=== PATIENT | male | born 1985 | race Caucasian/White ===

== ENCOUNTER 2020-07-15 15:50 | Emergency (ER) | payer OTHER, SELFPAY ==
[2020-07-15] VITALS (32 sets, daily range): BP systolic 130–152; BP diastolic 86–108; PULSE 92–106; RESP 7–26; O2SAT 96–100
--- NOTE | ~2020-07-15 | CT_ITS ---
EXAMINATION: CT BRAIN W/O DATE: 07/15/2020 17:15 INDICATION: Altered mental status. TECHNIQUE: Computed tomography (CT) of the head was performed without intravenous contrast. The dose- length product was 681.00 mGy-cm. The mA was adjusted according to patient size. Iterative reconstruc tion technique was employed. COMPARISON: No prior studies for comparison. FINDINGS: Normal brain parenchymal volume for age. Normal hutson-white differentiation. No acute intrac ranial hemorrhage, infarction, mass or mass effect. No ventriculomegaly or midline shift. Midline sagittal images demonstrate a normal corpus callosum, c raniovertebral junction and sella turcica. Basilar cisterns are patent. Paranasal sinuses and mastoids are pneumatized. No depressed skull fractures. IMPRESSION: 1. No acute intracranial abnormality. Reviewed, dictated and finalized at location A. ON GRAPH[employer] ARTIST
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
[2020-07-15 17:47] LABS: Basophils Absolute Auto 0.1 K/mm3 (0.0-0.1); Basophils Percent Auto 0.6 % (0.2-1.2); Eosinophils Absolute Auto 0.2 K/mm3 (0-0.3); Eosinophils Percent Auto 2.2 % (0-4.4); Hematocrit 45.8 % (42.0-52.0); Hemoglobin 15.7 g/dL (14.0-18.0); Immature Granulocyte Absolute 0.01 K/mm3 (0.00-0.031); Immature Granulocyte Percent A 0.1 % (0-0.5); Lymphocytes Absolute Auto 2.99 K/mm3 (0.9-3.2); Lymphocytes Percent Auto 33.4 % (18.3-44.2); Mean Corpuscular HGB Conc 34.3 g/dl (32-36); Mean Corpuscular Hemoglobin 30.1 pg (26-34); Mean Corpuscular Volume 87.7 fl (80-100); Monocytes Absolute Auto 0.7 K/mm3 (0.1-0.6); Monocytes Percent Auto 7.6 % (2.6-8.5); Neutrophils Percent Auto 56.1 % (45.5-73.1); Platelet Count Result 207 k/mm3 (150-375); Red Blood Count 5.22 M/mm3 (4.6-6.20); Red Cell Distribution Width 12.6 % (11.5-14.5); White Blood Count 8.9 K/mm3 (4.5-10.0)
[2020-07-15 18:04] LABS: Anion Gap 4 mmol/L (8-16); Blood Urea Nitrogen 11 mg/dL (9-20); Calcium 8.9 mg/dL (8.4-10.2); Carbon Dioxide 30 mmol/L (22-30); Chloride 105 mmol/L (98-107); Estimated Glomerular Filt Rate > 60; Glucose 105 mg/dL (75-110); Potassium 3.7 mmol/L (3.4-5.0); Sodium 139 mmol/L (137-145)
[2020-07-15 18:54] LABS: Acetaminophen < 10 ug/mL (10-30); Ethanol < 10 mg/dL (<10)
[2020-07-15 19:12] LABS: Barbiturate Screen Urine Negative (Negative); Benzodiazepines Screen Urine Positive (Negative)
[2020-07-15 19:23] LABS: Cannabinoid Screen Urine Positive (Negative); Cocaine Screen Urine Negative (Negative); Methadone Screen Urine Negative (Negative); Opiate Screen Urine Negative (Negative); Phencyclidine Screen Urine Negative (Negative)
[2020-07-15 20:22] LABS: Amphetamine Screen Urine Positive (Negative)
[2020-07-16 01:16] VITALS: BP 122/79; PULSE 92; RESP 16; O2SAT 97
[2020-07-16] MEDS: LACTATED RINGERS 1,000 ML 999 ML IV CONT (01:38)
[2020-07-16 02:41] VITALS: BP 124/80; PULSE 86; RESP 14; O2SAT 98
[2020-07-16 04:15] VITALS: BP 139/101; PULSE 91; RESP 14; O2SAT 97
[2020-07-16 05:32] VITALS: BP 120/74; PULSE 85; RESP 18; O2SAT 98
== END 2020-07-16 05:49 | disposition home or self-care (01) ==
PROVIDERS: Emergency Provider Emergency Medicine
DX: T50.91 Poisoning by, adverse effect of and underdosing of multiple unspecified drugs, medicaments and biological substances (principal)
CPT/HCPCS: 36415; 70450; 80048; 80307; 85025; 96360; 99284; J7120

== ENCOUNTER 2020-10-10 17:48 | Inpatient (IN) | payer OTHER, SELFPAY ==
--- NOTE | ~2020-10-10 | XR_ITS ---
EXAMINATION: XR chest 1V portable DATE: 10/10/2020 18:35 INDICATION: Transient alteration of awareness. Emesis. TECHNIQUE: frontal view of the chest was obtained. COMPARISON: None FINDINGS: The lungs are clear with no focal airspace opacities, pulmonary edema, pleural effusion or pneumothor ax. The cardiomediastinal silhouette is normal. There are a couple small embolization coils in the le ft upper quadrant. Visualized bones and soft tissues are unremarkable. IMPRESSION: 1. No acute cardiopulmonary disease. Reviewed, dictated and finalized at location A.
--- NOTE | ~2020-10-10 | CT_ITS ---
EXAMINATION: CT brain wo con DATE: 10/10/2020 18:31 INDICATION: Altered mental status TECHNIQUE: Computed tomography (CT) of the head was performed without intravenous contrast. Sagittal and coronal reconstructions were performed. The mA was adjusted according to patient size. Iterative reconstruction technique was employed. The dose-length product was 681.00 mGy-cm. COMPARISON: head CT dated 07/15/2020 FINDINGS: No acute intracranial hemorrhage, acute infarction or abnormal extra axial fluid collection. Ventricl es are normal and symmetric. No mass/mass effect. The orbits, paranasal sinuses and mastoid air cells are normal. IMPRESSION: 1. Normal head CT. Reviewed, dictated and finalized at location A. IMPRESSION: 1. Normal head CT.
[2020-10-10 17:49] VITALS: BP 147/98; PULSE 109; RESP 17; TEMP 37.1; O2SAT 100
--- NOTE | 2020-10-10 17:52 | ECG_ITS ---
Measurements Intervals [place] Rate: 103 P: 73 OK: 155 QRS: 37 QRSD: 101 T: 64 QT: 338 QTc: 443 Interpretive Statements SINUS TACHYCARDIA ABNORMAL ECG Electronically Signed On 10-10-2020 20:15:11 CDT by Adam Parra D.O.
[2020-10-10 17:54] LABS: Glucose Point of Care 105 (65-105)
[2020-10-10 17:59] LABS: Alveolar/Arterial O2 Gradient 201.9 mmHg; Base Excess ABG 1.5 mEq/l (+/-2.0); Carboxyhemoglobin 1.7 % THb (0-2.0); Fractional Inspired Oxygen 100 %; HCO3 ABG 27.1 mEq/l (22.0-26.0); Methemoglobin ABG 0.3 %THb (0-1.5); Oxygen Content ABG 20.8 %vol (16.0-22.0); Oxygen Saturation ABG 99.9 % (95.0-100.0); Oxyhemoglobin 97.3 % THb (90.0-100.0); PCO2 ABG 46.4 mmHg (35.0-45.0); PO2 ABG 464.7 mmHg (80.0-100.0); PO2 FiO2 Ratio Arterial Blood 4.65 %; Reduced Hemoglobin 0.7 %THb (0-5.0); Total Hemoglobin 14.3 g/dL (12.0-18.0); pH ABG 7.384 (7.350-7.450)
--- NOTE | 2020-10-10 17:59 | ED.SEIZURE ---
HPI - Seizure General Chief Complaint: Seizure Stated Complaint: SZ Time Seen by Provider: 10/10/20 17:52 Source: EMS Mode of arrival: EMS Limitations: altered mental status History of Present Illness HPI Narrative: This is a 35 year old male who presents from [facility] for an evaluation of seizures. EMS states they were told patient was found with emesis on the floor and altered. On EMS arrival, patient was alert and able to answer questions. They state in route patient started clinching both hands and stiffened up so he was given 5 mg valium. THey are unsure of prior history of medical problems. Patient is altered now. Related Data Allergies Allergy/AdvReac Type Severity Reaction Status Date / Time No Known Allergies Allergy Verified 07/15/20 18:52 Review of Systems Review of Systems: ROS unobtainable: Yes unobtainable due to mental status [facility] Social History Social History Gender identity (if verbalized by the patient): Male Comments Unknown medical, surgical or family history. Unknown social history Exam Const: Other: patient in position and clinching, flexing bilateral arms and hands. No shaking, eyes rolling to back of head, patient not shaking HENMT: Head: normocephalic and atraumatic Mouth: Yes Normal oral and palatal mucosa present, Yes lip normal, Yes oropharynx normal and Yes moist mucous membranes Eyes: Pupils: Equal, round and reactive pupils present Resp: Effort & Inspection: not labored, no retractions and tachypneic Auscultation: clear to auscultation bilaterally Cardio: Rate: tachycardic Rhythm: regular rhythm Heart sounds: no murmurs GI: Auscultation: normal bowel sounds Skin: General skin exam: normal color Rashes: no rashes Neuro: General: moves all extremities Extrem: General: no pedal edema Course Reevaluation(s) Reevaluation #1: Patient will move with sternal rub. It is unclear if patient had seizure. He has history of polysubstance abuse. He will be admitted to ICU for observation. I have discussed with Pricilla Serrano who accepts patient to hospitalist service to ICU. He was given 4 mg IV ativan on arrival to ER. Date: 10/10/20 Time: 19:11 Consultations Consultation #1: I discussed case with Dr. Rios. He accepts patient to ICU. He request patient to be loaded with keppra 1 g and to be given keppra 500 bid. I have also consulted Dr. Whalen. Date: 10/10/20 Time: 19:14 Vital Signs Vital signs: Vital Signs Temperature 98.7 F 10/10/20 17:49 Pulse Rate 109 H 10/10/20 17:49 Respiratory Rate 17 10/10/20 17:49 Blood Pressure 147/98 H 10/10/20 17:49 Pulse Oximetry 100 10/10/20 17:49 Temperature 98.7 F 10/10/20 17:49 Pulse Rate 102 H 10/10/20 18:11 Respiratory Rate 17 10/10/20 17:49 Blood Pressure 147/98 H 10/10/20 17:49 Pulse Oximetry 100 10/10/20 17:49 MDM - Seizure Medical Records Attestation: I reviewed the patient's medical records. Lab Data Attestation: I reviewed the patient's lab results. Result diagrams: 10/10/20 18:10 10/10/20 18:09 Labs: Lab Results 10/10/20 10/10/20 10/10/20 Range/Units 17:51 17:56 18:09 WBC (4.5-10.0) K/mm3 RBC (4.6-6.20) M/mm3 Hgb (14.0-18.0) g/dL Hct (42.0-52.0) % MCV (80-100) fl MCH (26-34) pg MCHC (32-36) g/dl RDW (11.5-14.5) % Plt Count (150-375) k/mm3 MPV (7.4-10.4) fl Immature Gran % (Auto) (0-0.5) % Neut % (Auto) (45.5-73.1) % Lymph % (Auto) (18.3-44.2) % [place] % (Auto) (2.6-8.5) % Eos % (Auto) (0-4.4) % Baso % (Auto) (0.2-1.2) % Lymph # (Auto) (0.9-3.2) K/mm3 [place] # (Auto) (0.1-0.6) K/mm3 Eos # (Auto) (0-0.3) K/mm3 Baso # (Auto) (0.0-0.1) K/mm3 Abs Immat Gran (auto) (0.00-0.031) K/mm3 Absolute Neuts (auto) (1.3-6.7) K/mm3 Absolute Nucleated RBC (0.0-0.012) K/mm3 Nucle
[2020-10-10 18:01] LABS: Device NON-REBREATHER MASK; Modified Allen's Test Pass; Site Drawn RIGHT BRACHIAL
[2020-10-10 18:11] VITALS: PULSE 102
[2020-10-10] MEDS: LACTATED RINGERS 1,000 ML 999 ML IV CONT (18:16)
[2020-10-10] MEDS: LORazepam INJ (*CRX) 2 MG/ML VIAL (18:20)
--- NOTE | 2020-10-10 18:20 | PC.NURSE ---
Patient given ativan 2mg per EDP verbal order at 1747 and 1751
[2020-10-10 18:27] LABS: Basophils Absolute Auto 0.1 K/mm3 (0.0-0.1); Basophils Percent Auto 0.6 % (0.2-1.2); Eosinophils Absolute Auto 0.1 K/mm3 (0-0.3); Eosinophils Percent Auto 1.4 % (0-4.4); Hematocrit 39.3 % (42.0-52.0); Hemoglobin 13.3 g/dL (14.0-18.0); Immature Granulocyte Absolute 0.02 K/mm3 (0.00-0.031); Immature Granulocyte Percent A 0.2 % (0-0.5); Lymphocytes Percent Auto 23.8 % (18.3-44.2); Mean Corpuscular HGB Conc 33.8 g/dl (32-36); Mean Corpuscular Hemoglobin 29.6 pg (26-34); Mean Corpuscular Volume 87.5 fl (80-100); Monocytes Absolute Auto 0.7 K/mm3 (0.1-0.6); Monocytes Percent Auto 7.5 % (2.6-8.5); Neutrophils Absolute Auto 5.9 K/mm3 (1.3-6.7); Neutrophils Percent Auto 66.5 % (45.5-73.1); Platelet Count Result 261 k/mm3 (150-375); Red Blood Count 4.49 M/mm3 (4.6-6.20); Red Cell Distribution Width 12.8 % (11.5-14.5); White Blood Count 8.8 K/mm3 (4.5-10.0)
[2020-10-10 18:28] LABS: Ammonia 10 umol/L (9-30); Ethanol < 10 mg/dL (<10)
[2020-10-10 18:38] LABS: Alanine Aminotransferase 14 U/L (4-50); Alkaline Phosphatase 55 U/L (38-126); Anion Gap 6 mmol/L (8-16); Aspartate Amino Transferase 26 U/L (17-59); Barbiturate Screen Urine Negative (Negative); Benzodiazepines Screen Urine Negative (Negative); Bilirubin,Total 0.5 mg/dL (0.2-1.3); Blood Urea Nitrogen 11 mg/dL (9-20); Calcium 8.6 mg/dL (8.4-10.2); Carbon Dioxide 29 mmol/L (22-30); Chloride 105 mmol/L (98-107); Creatine Kinase 256 U/L (55-170); Estimated CRCL calculation 115 ml/min; Estimated Glomerular Filt Rate > 60; Glucose 96 mg/dL (75-110); Lactic Acid Reflex 1.9 mmol/L (0.7-2.1); Magnesium 1.9 mg/dL (1.6-2.3); Potassium 3.6 mmol/L (3.4-5.0); Sodium 140 mmol/L (137-145)
[2020-10-10 18:43] LABS: Cannabinoid Screen Urine Positive (Negative); Cocaine Screen Urine Negative (Negative); Methadone Screen Urine Negative (Negative); Opiate Screen Urine Negative (Negative); Phencyclidine Screen Urine Negative (Negative)
[2020-10-10 18:50] LABS: Add Urine Microscopic? YES; Appearance Urine Clear (Clear); Bilirubin Urine Negative (Negative); Blood Urine Negative (Negative); Color Urine Yellow (Yellow); Glucose Urine UA Negative (Negative); Ketones Urine Negative (Negative); Leukocyte Esterase Ur Negative LEU/UL (Negative); Mucus Urine Moderate /lpf; Nitrate Urine Negative (Negative); Protein Urine 1+ mg/dL (Negative); RBC Urine 0-2 /hpf (0-2); Specific Grav Ur 1.023 (1.001-1.035); Squamous Epithelial Cell Urine Rare /hpf (Few); WBC Urine 0-3 /hpf
[2020-10-10 19:04] LABS: Amphetamine Screen Urine Positive (Negative)
[2020-10-10] MEDS: levETIRAcetam 1000MG/NACL100ML 1,000 MG/100 ML BAG 400 MG IVPB (19:13)
--- NOTE | 2020-10-10 19:15 | PM.IMHP ---
H&P: HPI History of Present Illness Date/Time: 10/10/20 19:20 Chief Complaint: Unresponsive, seizure. Narrative: This is a 35-year-old male with history of polysubstance abuse presented to the emergency department earlier today via EMS from long-term for evaluation after he was found unresponsive after a witnessed seizure. He is postictal at the time my evaluation and is unable to provide me with any history and as such all of the following is obtained via a review of his electronic medical records. I have not been able to get a hold family at this time. Not long prior to arrival he was found unresponsive in his long-term cell with evidence of recent emesis. EMS was summoned and he was reportedly alert and answering questions at that time. EN route to the hospital he apparently had a witnessed seizure and he was given 5 milligrams of Valium. He received 2 milligrams of lorazepam in the emergency department as well, and his seizures have stopped. Unfortunately I have no other information and it is unclear whether not he has had seizures before. His urine drug screen was positive for cannabinoids and amphetamines. Review of Systems Review of Systems: Narrative: Unable to be assessed given his current clinical status as detailed above. [facility] Past Medical History Medical History (Updated 10/10/20 @ 23:22 by Pricilla Serrano PA-C) Polysubstance abuse Surgical History Surgical History (Updated 10/10/20 @ 23:17 by Pricilla Serrano PA-C) No pertinent past surgical history Family History Family History (Updated 10/10/20 @ 23:17 by Pricilla Serrano PA-C) Other Unknown family medical history Social History Social History (Updated 10/10/20 @ 23:19 by Pricilla Serrano PA-C) Social History: The patient's address is in [place]. Urine drug screen is positive for methamphetamines and cannabinoids. Unclear if the patient is a smoker. Unable to locate an emergency contact. Meds Home Medications and Allergies Allergies Allergy/AdvReac Type Severity Reaction Status Date / Time No Known Allergies Allergy Verified 07/15/20 18:52 Vital Signs Vital Signs - 24 hr 10/10/20 17:49 10/10/20 18:11 10/10/20 19:25 Temperature 98.7 F Pulse Rate 109 H 102 H 93 Respiratory Rate 17 18 Blood Pressure 147/98 H 153/83 H Pulse Oximetry 100 100 10/10/20 21:48 Temperature Pulse Rate 91 Respiratory Rate 16 Blood Pressure 154/105 H Pulse Oximetry 98 Exam Narrative: Exam Narrative: General: Acutely ill-appearing male in the semi-Sunshine position in bed. Weight: 72.7 kilograms. BMI: 21.7. HEENT: Normocephalic, atraumatic. Pupils are about 3 millimeters and are sluggishly reactive. Sclerae anicteric. Conjunctiva mildly injected. Unable to assess extraocular motions as he is postictal. Tacky mucous membranes. Dry emesis on the corner of his mouth. Oropharynx not visualized. Neck: Supple. No JVD. Respiratory: Respirations are nonlabored. Scattered upper airway rhonchi. Protecting airway at this time. Cardiovascular: Regular rate and rhythm with S1-S2. Gastrointestinal: Abdomen is soft, nontender, and nondistended with positive bowel sounds. Skin: Warm and dry. No rash or lesions on limited exam. Extremities: No cyanosis, clubbing, or edema. Radial and pedal pulses intact. Neurological: Postictal. No facial asymmetry. 1+ patellar pulses. Psychiatric: Unable to assess as he is postictal. H&P: Results Labs Labs: Short CBC 10/10/20 Range/Units 18:10 WBC 8.8 (4.5-10.0) K/mm3 Hgb 13.3 L (14.0-18.0) g/dL Hct 39.3 L (42.0-52.0) % Plt Count 261 (150-375) k/mm3 [facility] 10/10/20 18:09 Sodium 140 Potassium 3.6 Chloride 105 Carbon Dioxide 29 BUN 11 Creatinine 0.80 Glucose 96 Calcium 8.6 Cardiac Enzymes 10/10/20 Range/Units 18:09 Total Creatine Kinase 256 H (55-170) U/L Liver Function 10/10/20 Range/Units 18:09 Total Bilirubin 0.5
[2020-10-10 19:25] VITALS: BP 153/83; PULSE 93; RESP 18; O2SAT 100
[2020-10-10 19:41] LABS: Prothrombin Time 13.3 Seconds (11.1-14.7)
[2020-10-10 19:43] LABS: Partial Thromboplastin Time 26.2 SECONDS (22.3-36.8)
[2020-10-10 21:48] VITALS: BP 154/105; PULSE 91; RESP 16; O2SAT 98
--- NOTE | 2020-10-10 23:19 | ADMGEN ---
This patient, Abraham Cortez, was admitted to Intensive Care Unit-10. Patient/family oriented to hospital policies and general routines including ID bracelet, bed and alarms, visiting hours, pain management, procedures, bathroom and other care routines, personal items, smoking policy, room service/diet, and visiting hours. Information on how to activate the Rapid Response Team has been discussed. Patient/Family are encouraged to report perceived risks to care and to ask questions if they do not understand what they are told or what they should do.
[2020-10-10 23:26] VITALS: BP 130/79; PULSE 78; RESP 16; TEMP 36.7; O2SAT 98
[2020-10-10 23:27] VITALS: BP 134/89; PULSE 79; PULSE 81; RESP 15; TEMP 35.7; O2SAT 100; BMI 18.7
[2020-10-10] MEDS: SODIUM CHLORIDE 0.9% IV 1,000 ML 125 ML IV CONT (23:41)
[2020-10-10] MEDS: THIAMINE HCL 200 MG/2 ML VIAL 100 MG IV PUSH (23:44)
[2020-10-11] VITALS (10 sets, daily range): BP systolic 130–144; BP diastolic 80–95; PULSE 83–104; RESP 14–25; TEMP 35.7–36.9; O2SAT 99–100
[2020-10-11 04:19] LABS: Basophils Percent Auto 0.4 % (0.2-1.2); Eosinophils Absolute Auto 0.2 K/mm3 (0-0.3); Hematocrit 45.2 % (42.0-52.0); Immature Granulocyte Absolute 0.02 K/mm3 (0.00-0.031); Immature Granulocyte Percent A 0.3 % (0-0.5); Lymphocytes Absolute Auto 2.46 K/mm3 (0.9-3.2); Lymphocytes Percent Auto 33.1 % (18.3-44.2); Mean Corpuscular HGB Conc 33.2 g/dl (32-36); Mean Corpuscular Hemoglobin 29.7 pg (26-34); Mean Corpuscular Volume 89.5 fl (80-100); Mean Platelet Volume 8.9 fl (7.4-10.4); Monocytes Absolute Auto 0.6 K/mm3 (0.1-0.6); Monocytes Percent Auto 7.7 % (2.6-8.5); Neutrophils Absolute Auto 4.1 K/mm3 (1.3-6.7); Neutrophils Percent Auto 55.5 % (45.5-73.1); Platelet Count Result 248 k/mm3 (150-375); Red Blood Count 5.05 M/mm3 (4.6-6.20); Red Cell Distribution Width 12.9 % (11.5-14.5); White Blood Count 7.4 K/mm3 (4.5-10.0)
[2020-10-11 04:31] LABS: Alanine Aminotransferase 13 U/L (4-50); Albumin Level 3.5 g/dL (3.5-5.1); Alkaline Phosphatase 56 U/L (38-126); Anion Gap 3 mmol/L (8-16); Aspartate Amino Transferase 21 U/L (17-59); Bilirubin,Total 0.8 mg/dL (0.2-1.3); Blood Urea Nitrogen 6 mg/dL (9-20); Calcium 8.4 mg/dL (8.4-10.2); Carbon Dioxide 29 mmol/L (22-30); Chloride 108 mmol/L (98-107); Creatine Kinase 200 U/L (55-170); Estimated CRCL calculation 130 ml/min; Estimated Glomerular Filt Rate > 60; Glucose 91 mg/dL (75-110); Potassium 3.4 mmol/L (3.4-5.0); Sodium 140 mmol/L (137-145)
[2020-10-11] MEDS: SODIUM CHLORIDE 0.9% IV 1,000 ML 999 ML IV CONT ×2 (07:46→09:38)
--- NOTE | 2020-10-11 09:13 | WPDCNINT ---
Assessment and Plan Assessment and plan (1) Polysubstance abuse: Code(s): F19.10 - Other psychoactive substance abuse, uncomplicated Status: Acute Assessment and Plan: Patient with history of polysubstance abuse. Urine drug screen was positive for amphetamine cannabinoids. -additional continue maintenance IV fluids -monitor urine output -monitor this -currently hemodynamically stable (2) Seizure: Code(s): R56.9 - Unspecified convulsions Status: Acute Assessment and Plan: Possible seizure activity as mentioned in the medical records -patient was started on Keppra -no more seizure activity noted overnight per bedside RN (3) Elevated CK: Code(s): R74.8 - Abnormal levels of other serum enzymes Status: Acute Assessment and Plan: Could be related to dehydration, will give additional IV fluids and monitor Additional Plan Discussed with patient updated with his condition and plan of care Code status: Full code Critical care time spent: 41 minutes This dictation may have been done utilizing a voice recognition system. Attempts have been made to correct errors. However, there may be uncorrected grammatical, spelling, and recognition errors present. Due to a high probability of clinically significant, life threatening deterioration, the patient required my highest level of preparedness to intervene emergently and I personally spent this critical care time directly and personally managing the patient. This critical care time included obtaining a history; examining the patient; pulse oximetry; ordering and review of studies; arranging urgent treatment with development of a management plan; evaluation of patient's response to treatment; frequent reassessment; and discussions with other providers. It was exclusive of separately billable procedures and treating other patients and teaching time. Please see Assessment and Plan section and the rest of the note for further information on patient assessment and treatment [employer] Super[employer] Consult Note Consult date: 10/11/20 Time Seen: 07:04 Reason for consult: Encephalopathy, unresponsiveness, seizures HPI: Abraham Cortez is a 35 year old male CHF history of polysubstance abuse presented to the ED on 10/10 via EMS from intermediate evaluation after being found unresponsive patient with, with possible seizures. ER had evidence of recent emesis. Patient did have a witnessed seizure EN route to the hospital was given Valium 5 mg IV. He received additional Ativan in the ER. Patient was given 1 L IV fluid bolus the ED started on maintenance IV fluids. CK levels slightly elevated, urine drug screen was positive for amphetamines and cannabinoids. Alcohol level was within normal limits. Patient was transferred to ICU for further management Patient seen examined this morning in the ICU, easily arousable but somnolent. Does follow simple commands, states he is hungry and wants to eat. Patient is hemodynamically stable, afebrile, incontinent of urine. Denies any chest pain, shortness of breath, abdominal pain, nausea vomiting at this time Review of Systems Review of Systems: All systems reviewed & are unremarkable except as noted in HPI and below PMFSH Past Medical History Medical History (Updated 10/10/20 @ 23:47 by Pricilla Serrano PA-C) Polysubstance abuse Surgical History Surgical History (Updated 10/10/20 @ 23:47 by Pricilla Serrano PA-C) Exploratory laparotomy scar Family History Family History Other Unknown family medical history Social History Social History (Updated 10/10/20 @ 23:19 by Pricilla Serrano PA-C) Social History: The patient's address is in [place]. Urine drug screen is positive for methamphetamines and cannabinoids. Unclear if the patient is a smoker. Unable to locate an emergency contact. Smoking status: Unknown if ever smoked Meds
[2020-10-11] MEDS: levETIRAcetam 500MG/NACL 100ML 500 MG/100 ML BAG 400 MG IVPB ×2 (09:38→20:17)
[2020-10-11] MEDS: SODIUM CHLORIDE 0.9% IV 1,000 ML 125 ML IV CONT ×2 (11:50→20:17)
--- NOTE | 2020-10-11 14:40 | WPDNEURCNPN ---
Assessment and Plan Additional Plan treatment is supportive in case will given accordingly and will obtain the EEG Consult date: 10/11/20 Time Seen: 14:00 HPI: Abraham Cortez is a 35 year old male admitted to the hospital for the complaints of seizure in addition to history of polysubstance abuse initially presented to the emergency room via EMS from halfway for evaluation of unresponsive after a witnessed seizure he had a witnessed seizure EN route as well [place] 5 mg of Valium and 2 mg of lorazepam in the emergency room but was admitted for the further evaluation. Patient does have a history of polysubstance abuse, pertinent investigations include a CT scan of the head which is negative routine lab negative except the toxicology screen positive for the emphatic means benzodiazepine and cannabinoids Review of Systems Review of Systems: All systems reviewed & are unremarkable except as noted in HPI and below PMFSH Past Medical History Medical History Polysubstance abuse Surgical History Surgical History Exploratory laparotomy scar Family History Family History Other Unknown family medical history Social History Social History Social History: The patient's address is in [place]. Urine drug screen is positive for methamphetamines and cannabinoids. Unclear if the patient is a smoker. Unable to locate an emergency contact. Smoking status: Unknown if ever smoked Meds Home Medications and Allergies Home Medications Medication Instructions Recorded Confirmed Type Unable to Obtain Home Medications 10/10/20 10/10/20 History Allergies Allergy/AdvReac Type Severity Reaction Status Date / Time No Known Allergies Allergy Verified 07/15/20 18:52 Vital Signs Vital Signs - 24 hr 10/10/20 17:49 10/10/20 18:11 10/10/20 19:25 Temperature 37.1 C Pulse Rate 109 H 102 H 93 Respiratory Rate 17 18 Blood Pressure 147/98 H 153/83 H Pulse Oximetry 100 100 10/10/20 21:48 10/10/20 23:26 10/10/20 23:27 Temperature 36.7 C 35.7 C L Pulse Rate 91 78 81 Respiratory Rate 16 16 15 Blood Pressure 154/105 H 130/79 134/89 Pulse Oximetry 98 98 100 10/11/20 00:00 10/11/20 02:00 10/11/20 04:00 Temperature 35.7 C L Pulse Rate 90 89 90 Respiratory Rate 15 25 H 16 Blood Pressure 130/80 139/92 H 135/95 H Pulse Oximetry 99 100 100 10/11/20 06:00 10/11/20 08:00 10/11/20 10:00 Temperature 36.1 C L Pulse Rate 97 94 93 Respiratory Rate 16 18 20 Blood Pressure 144/94 H 136/91 H 131/88 Pulse Oximetry 100 100 100 10/11/20 12:00 Temperature 36.4 C L Pulse Rate 83 Respiratory Rate 20 Blood Pressure 138/95 H Pulse Oximetry 100 Exam Neuro: Comatose Patient: other ( at this stage not responding to the verbal commands) Results Labs CBC & Chem 7: 10/11/20 03:56 10/11/20 03:56 Labs: Short CBC 10/10/20 10/11/20 Range/Units 18:10 03:56 WBC 8.8 7.4 (4.5-10.0) K/mm3 Hgb 13.3 L 15.0 (14.0-18.0) g/dL Hct 39.3 L 45.2 (42.0-52.0) % Plt Count 261 248 (150-375) k/mm3 BMP 10/10/20 10/11/20 18:09 03:56 Sodium 140 140 Potassium 3.6 3.4 Chloride 105 108 H Carbon Dioxide 29 29 BUN 11 6 L D Creatinine 0.80 0.60 L Glucose 96 91 Calcium 8.6 8.4 Cardiac Enzymes 10/10/20 10/11/20 Range/Units 18:09 03:56 Total Creatine Kinase 256 H 200 H (55-170) U/L Liver Function 10/10/20 10/11/20 Range/Units 18:09 03:56 Total Bilirubin 0.5 0.8 (0.2-1.3) mg/dL AST 26 21 (17-59) U/L ALT 14 13 (4-50) U/L Alkaline Phosphatase 55 56 (38-126) U/L Albumin 4.0 3.5 (3.5-5.1) g/dL Urine 10/10/20 Range/Units 18:09 Urine Color Yellow (Yellow) Urine Appearance Clear (Clear) Urine pH 7.0 (5.0-9.
--- NOTE | 2020-10-11 15:21 | PM.IMPN ---
Progress Note: A&P Assessment and Plan (1) Seizure: Code(s): R56.9 - Unspecified convulsions Status: Acute Assessment and Plan: NO NEW SUTURE SINGLE SINCE ADMISSION FOLLOW NEUROLOGY RECOMMENDATIONS (2) Polysubstance abuse: Code(s): F19.10 - Other psychoactive substance abuse, uncomplicated Status: Acute Assessment and Plan: CONTINUE TO MONITOR (3) Elevated CK: Code(s): R74.8 - Abnormal levels of other serum enzymes Status: Acute Assessment and Plan: IV FLUIDS CONTINUE TO MONITOR Additional Plan The patient presents today from shelter after he was found unresponsive and had a witnessed seizure and route to the hospital. Labs and imaging personally reviewed. Unfortunately he is currently postictal and cannot provide much information I have not been able to locate emergency contact. It is unclear whether or not he has a history of seizures. At this time he has been started on levetiracetam 500 milligrams twice daily and Dr. Whalen (neurology) has been consulted. EEG ordered for a.m. Neuro checks ordered q.4 hours. The patient is protecting his airway and aspiration precautions have been initiated. Initiate seizure precautions as well. CK is mildly elevated, likely due to seizure, but we will trend to ensure it is not increasing exponentially. Subjective Date/time seen: 10/11/20 15:21 Review of Systems Review of Systems: All systems reviewed & are unremarkable except as noted in HPI and below ROS unobtainable: Yes unobtainable due to mental status Exam Narrative: Exam Narrative: General: Acutely ill-appearing male in the semi-Sunshine position in bed. Weight: 72.7 kilograms. BMI: 21.7. HEENT: Normocephalic, atraumatic. Pupils are about 3 millimeters and are sluggishly reactive. Sclerae anicteric. Conjunctiva mildly injected. Unable to assess extraocular motions as he is postictal. Tacky mucous membranes. Dry emesis on the corner of his mouth. Oropharynx not visualized. Neck: Supple. No JVD. Respiratory: Respirations are nonlabored. Scattered upper airway rhonchi. Protecting airway at this time. Cardiovascular: Regular rate and rhythm with S1-S2. Gastrointestinal: Abdomen is soft, nontender, and nondistended with positive bowel sounds. Skin: Warm and dry. No rash or lesions on limited exam. Extremities: No cyanosis, clubbing, or edema. Radial and pedal pulses intact. Neurological: Postictal. No facial asymmetry. 1+ patellar pulses. Psychiatric: Unable to assess as he is postictal. Objective Data Vital Signs Vital Signs: Vital Signs - 24 hr 10/10/20 17:49 10/10/20 18:11 10/10/20 19:25 Temperature 98.7 F Pulse Rate 109 H 102 H 93 Respiratory Rate 17 18 Blood Pressure 147/98 H 153/83 H Pulse Oximetry 100 100 10/10/20 21:48 10/10/20 23:26 10/10/20 23:27 Temperature 98.1 F 96.3 F L Pulse Rate 91 78 81 Respiratory Rate 16 16 15 Blood Pressure 154/105 H 130/79 134/89 Pulse Oximetry 98 98 100 10/11/20 00:00 10/11/20 02:00 10/11/20 04:00 Temperature 96.3 F L Pulse Rate 90 89 90 Respiratory Rate 15 25 H 16 Blood Pressure 130/80 139/92 H 135/95 H Pulse Oximetry 99 100 100 10/11/20 06:00 10/11/20 08:00 10/11/20 10:00 Temperature 97.0 F L Pulse Rate 97 94 93 Respiratory Rate 16 18 20 Blood Pressure 144/94 H 136/91 H 131/88 Pulse Oximetry 100 100 100 10/11/20 12:00 Temperature 97.5 F L Pulse Rate 83 Respiratory Rate 20 Blood Pressure 138/95 H Pulse Oximetry 100 Intake/Output Intake/Output: Intake & Output 10/08/20 10/09/20 10/10/20 10/11/20 23:59 23:59 23:59 23:59 Intake Total 1100 1800 Output Total 1200 Balance 1100 600 Meds/Results Medications: Active Medications Generic Name Dose Route Start Last Admin Trade Name Freq PRN Reason Stop Dose Admin Levetiracetam 500 mg in 100 mls @ 400 mls/hr 10/11/20 08:00 10/11/20 09:53 Keppra Iv IVPB Infused Q12HR JAZ Infusion A
--- NOTE | 2020-10-11 18:22 | PC.NURSE ---
Pt received from ICU. Pt oriented to room. 10/11/20 2197
--- NOTE | 2020-10-11 18:24 | PC.NURSE ---
This patient, Abraham Cortez, was transferred to [[facility] ] on 10/11/20 at 1820. Personal belongings sent with patient. Report given to [Angela ]. Appropriate documentation sent with patient.
[2020-10-12 04:48] VITALS: BP 122/79; PULSE 80; RESP 12; TEMP 36.5; O2SAT 100
[2020-10-12] MEDS: SODIUM CHLORIDE 0.9% IV 1,000 ML 125 ML IV CONT (04:55)
[2020-10-12] MEDS: levETIRAcetam 500MG/NACL 100ML 500 MG/100 ML BAG 400 MG IVPB ×2 (09:22→20:08)
[2020-10-12 12:00] VITALS: BP 135/83
[2020-10-12 13:44] VITALS: BP 135/83; PULSE 76; RESP 16; TEMP 36.6; O2SAT 100
--- NOTE | 2020-10-12 14:29 | PM.IMPN ---
Progress Note: A&P Assessment and Plan (1) Seizure: Code(s): R56.9 - Unspecified convulsions Status: Acute Assessment and Plan: NO NEW SEIZURES SINGLE SINCE ADMISSION FOLLOW NEUROLOGY RECOMMENDATIONS NO SEIZURE ACTIVITY CONTINUE TO MONITOR (2) Polysubstance abuse: Code(s): F19.10 - Other psychoactive substance abuse, uncomplicated Status: Acute Assessment and Plan: CONTINUE TO MONITOR WILL FOLLOW-UP IN OUTPATIENT SETTING (3) Elevated CK: Code(s): R74.8 - Abnormal levels of other serum enzymes Status: Acute Assessment and Plan: IV FLUIDS CONTINUE TO MONITOR Additional Plan The patient presents today from [facility] after he was found unresponsive and had a witnessed seizure and route to the hospital. Labs and imaging personally reviewed. Unfortunately he is currently postictal and cannot provide much information I have not been able to locate emergency contact. It is unclear whether or not he has a history of seizures. At this time he has been started on levetiracetam 500 milligrams twice daily and Dr. Whalen (neurology) has been consulted. EEG ordered for a.m. Neuro checks ordered q.4 hours. The patient is protecting his airway and aspiration precautions have been initiated. Initiate seizure precautions as well. CK is mildly elevated, likely due to seizure, but we will trend to ensure it is not increasing exponentially. Subjective Date/time seen: 10/12/20 14:29 AND FINE Review of Systems Review of Systems: All systems reviewed & are unremarkable except as noted in HPI and below ROS unobtainable: Yes unobtainable due to mental status Exam Narrative: Exam Narrative: General: WELL-APPEARING IN BED. Weight: 72.7 kilograms. BMI: 21.7. HEENT: Normocephalic, atraumatic. Pupils are about 3 millimeters and are sluggishly reactive. Sclerae anicteric. Conjunctiva mildly injected. Unable to assess extraocular motions as he is postictal. Tacky mucous membranes. Dry emesis on the corner of his mouth. Oropharynx not visualized. Neck: Supple. No JVD. Respiratory: Respirations are nonlabored. Scattered upper airway rhonchi. Protecting airway at this time. Cardiovascular: Regular rate and rhythm with S1-S2. Gastrointestinal: Abdomen is soft, nontender, and nondistended with positive bowel sounds. Skin: Warm and dry. No rash or lesions on limited exam. Extremities: No cyanosis, clubbing, or edema. Radial and pedal pulses intact. Neurological: Postictal. No facial asymmetry. 1+ patellar pulses. Psychiatric: Unable to assess as he is postictal. Objective Data Vital Signs Vital Signs: Vital Signs - 24 hr 10/11/20 16:00 10/11/20 18:20 10/11/20 20:03 Temperature 97.5 F L 97.2 F L 98.4 F Pulse Rate 86 88 104 H Respiratory Rate 16 18 14 Blood Pressure 135/93 H 142/92 H 144/88 H Pulse Oximetry 99 100 100 10/12/20 04:48 10/12/20 13:44 Temperature 97.7 F 97.8 F Pulse Rate 80 76 Respiratory Rate 12 16 Blood Pressure 122/79 135/83 Pulse Oximetry 100 100 Intake/Output Intake/Output: Intake & Output 10/09/20 10/10/20 10/11/20 10/12/20 23:59 23:59 23:59 23:59 Intake Total 1100 3340 1640 Output Total 1200 900 Balance 1100 2140 740 Meds/Results Medications: Active Medications Generic Name Dose Route Start Last Admin Trade Name Freq PRN Reason Stop Dose Admin Levetiracetam 500 mg in 100 mls @ 400 mls/hr 10/11/20 08:00 10/12/20 09:37 Keppra Iv IVPB Infused Q12HR JAZ Infusion Ondansetron HCl 4 mg 10/10/20 19:15 Ondansetron Inj 4 Mg/2 Ml Vial IV PUSH Q4H PRN Nausea Radiology Results: ITS Impressions Head CT 10/10/20 18:33 IMPRESSION: 1. Normal head CT. Chest X-Ray 10/10/20 18:40 IMPRESSION: 1. No acute cardiopulmonary disease. Quality VTE Prophylaxis VTE prophylaxis: mechanical ordered
[2020-10-12 21:12] VITALS: BP 117/73; PULSE 89; RESP 16; TEMP 36.1; O2SAT 95
--- NOTE | 2020-10-12 21:20 | PC.NURSE ---
Called Aviation Consultant due to pt having guest who had snuck into pt room after staff was called by sales secretary zita that pt had belongings being brought into hospital. Pt immediately had to go to bathroom. Guest was gone before staff could confront visitor. Room had a strong odor of cigarettes. Pt tried to state he hadn't smoked. Went into bathroom which also had smelled strongly of smoked. Asked pt again about smoking cigarettes. Pt told me it was a vape. Which he did hand to nurse as well as look through bag when I was checking to make sure their were no pill bottles. Allowed him to remove body wash and toothpaste which he had but locked everything up in his lockable closet. Pt did not argue regarding belongings being locked up. Offered him nicotine gum he could used. Asked if he could go out to smoke. Told him he had seizure and could not smoke. Apologized to pt because that was the rules. Pt muttered something under his breath but gave belongings to nurse without argument. tower supervisor notified. Dr. Ventura was also notified of incident.
[2020-10-12] MEDS: NICOTINE (*PBKC) 4 MG GUM PO (21:53)
[2020-10-13 01:51] VITALS: BP 136/77; PULSE 80; RESP 16; TEMP 36.1; O2SAT 100
[2020-10-13 05:26] VITALS: BP 137/90; PULSE 82; RESP 16; TEMP 36.4; O2SAT 100
[2020-10-13 07:50] VITALS: O2SAT 95
[2020-10-13] MEDS: levETIRAcetam 500MG/NACL 100ML 500 MG/100 ML BAG 400 MG IVPB (08:57)
[2020-10-13 09:04] VITALS: BP 137/90
--- NOTE | 2020-10-13 10:40 | PM.IMPN ---
Progress Note: A&P Assessment and Plan (1) Seizure: Code(s): R56.9 - Unspecified convulsions Status: Acute Assessment and Plan: NO NEW SEIZURES SINGLE SINCE ADMISSION FOLLOW NEUROLOGY RECOMMENDATIONS NO SEIZURE ACTIVITY CONTINUE TO MONITOR Patient still on Keppra loading Supportive care (2) Polysubstance abuse: Code(s): F19.10 - Other psychoactive substance abuse, uncomplicated Status: Acute Assessment and Plan: CONTINUE TO MONITOR WILL FOLLOW-UP IN OUTPATIENT SETTING (3) Elevated CK: Code(s): R74.8 - Abnormal levels of other serum enzymes Status: Acute Assessment and Plan: IV FLUIDS CONTINUE TO MONITOR BMP and CBC Additional Plan The patient presents today from [facility] after he was found unresponsive and had a witnessed seizure and route to the hospital. Labs and imaging personally reviewed. Unfortunately he is currently postictal and cannot provide much information I have not been able to locate emergency contact. It is unclear whether or not he has a history of seizures. At this time he has been started on levetiracetam 500 milligrams twice daily and Dr. Whalen (neurology) has been consulted. EEG ordered for a.m. Neuro checks ordered q.4 hours. The patient is protecting his airway and aspiration precautions have been initiated. Initiate seizure precautions as well. CK is mildly elevated, likely due to seizure, but we will trend to ensure it is not increasing exponentially. Patient is been loaded with Keppra has been seizure-free since admission continue supportive care Subjective Date/time seen: 10/13/20 10:40 I feel fine Review of Systems Review of Systems: All systems reviewed & are unremarkable except as noted in HPI and below ROS unobtainable: Yes unobtainable due to mental status Exam Narrative: Exam Narrative: General: WELL-APPEARING IN BED. Weight: 72.7 kilograms. BMI: 21.7. HEENT: Normocephalic, atraumatic. Pupils are about 3 millimeters and are sluggishly reactive. Sclerae anicteric. Conjunctiva mildly injected. Unable to assess extraocular motions as he is postictal. Tacky mucous membranes. Dry emesis on the corner of his mouth. Oropharynx not visualized. Neck: Supple. No JVD. Respiratory: Respirations are nonlabored. Scattered upper airway rhonchi. Protecting airway at this time. Cardiovascular: Regular rate and rhythm with S1-S2. Gastrointestinal: Abdomen is soft, nontender, and nondistended with positive bowel sounds. Skin: Warm and dry. No rash or lesions on limited exam. Extremities: No cyanosis, clubbing, or edema. Radial and pedal pulses intact. Neurological: Awake alert oriented x3. No facial asymmetry. 1+ patellar pulses. Psychiatric: Unable to assess as he is postictal. Objective Data Vital Signs Vital Signs: Vital Signs - 24 hr 10/12/20 12:00 10/12/20 13:44 10/12/20 21:12 Temperature 97.8 F 96.9 F L Pulse Rate 76 89 Respiratory Rate 16 16 Blood Pressure 135/83 135/83 117/73 Pulse Oximetry 100 95 10/13/20 01:51 10/13/20 05:26 10/13/20 07:50 Temperature 97.0 F L 97.6 F Pulse Rate 80 82 Respiratory Rate 16 16 Blood Pressure 136/77 137/90 Pulse Oximetry 100 100 95 10/13/20 09:04 Temperature Pulse Rate Respiratory Rate Blood Pressure 137/90 Pulse Oximetry Intake/Output Intake/Output: Intake & Output 10/10/20 10/11/20 10/12/20 10/13/20 23:59 23:59 23:59 23:59 Intake Total 1100 3340 3650 1240 Output Total 1200 2450 1200 Balance 1100 2140 1200 40 Meds/Results Medications: Active Medications Generic Name Dose Route Start Last Admin Trade Name Freq PRN Reason Stop Dose Admin Levetiracetam 500 mg in 100 mls @ 400 mls/hr 10/11/20 08:00 10/13/20 08:57 Keppra Iv IVPB 400 mls/hr Q12HR JAZ Administration Nicotine Polacrilex 4 mg 10/12/20 21:42 10/12/20 21:53 Nicotine (*Pbkc) 4 Mg Gum PO 4 mg PRN PRN Administration Nicotine Cravings
[2020-10-13 10:58] LABS: Basophils Percent Auto 0.5 % (0.2-1.2); Eosinophils Absolute Auto 0.3 K/mm3 (0-0.3); Eosinophils Percent Auto 3.7 % (0-4.4); Hematocrit 45.2 % (42.0-52.0); Hemoglobin 15.1 g/dL (14.0-18.0); Immature Granulocyte Absolute 0.01 K/mm3 (0.00-0.031); Immature Granulocyte Percent A 0.1 % (0-0.5); Lymphocytes Absolute Auto 1.82 K/mm3 (0.9-3.2); Lymphocytes Percent Auto 23.8 % (18.3-44.2); Mean Corpuscular HGB Conc 33.4 g/dl (32-36); Mean Corpuscular Hemoglobin 29.4 pg (26-34); Mean Corpuscular Volume 87.9 fl (80-100); Mean Platelet Volume 8.7 fl (7.4-10.4); Monocytes Absolute Auto 0.5 K/mm3 (0.1-0.6); Monocytes Percent Auto 6.9 % (2.6-8.5); Platelet Count Result 245 k/mm3 (150-375); Red Blood Count 5.14 M/mm3 (4.6-6.20); Red Cell Distribution Width 12.8 % (11.5-14.5); White Blood Count 7.7 K/mm3 (4.5-10.0)
[2020-10-13 11:10] LABS: Anion Gap 2 mmol/L (8-16); Blood Urea Nitrogen 7 mg/dL (9-20); Calcium 9.2 mg/dL (8.4-10.2); Carbon Dioxide 32 mmol/L (22-30); Chloride 104 mmol/L (98-107); Estimated CRCL calculation 112 ml/min; Estimated Glomerular Filt Rate > 60; Glucose 104 mg/dL (75-110); Sodium 138 mmol/L (137-145)
[2020-10-13 13:32] VITALS: BP 127/75; PULSE 80; RESP 16; TEMP 36.8; O2SAT 100
--- NOTE | 2020-10-13 13:41 | PC.NURSE ---
strong smell of marijuana smoke coming from pt's room into worrell noted, nursing solder making supervisor informed, she came to room to speak with pt and his mother that has arrived, pt has decided to sign out AMA
--- NOTE | 2020-11-07 01:59 | PM.DS ---
DS: Admitting Diagnosis Admitting Diagnosis Admitting Diagnosis: (1) Seizure: Code(s): R56.9 - Unspecified convulsions Status: Acute (2) Polysubstance abuse: Code(s): F19.10 - Other psychoactive substance abuse, uncomplicated Status: Acute (3) Elevated CK: Code(s): R74.8 - Abnormal levels of other serum enzymes Status: Acute DS: Discharge Diagnosis Discharge Diagnosis (1) Seizure: Code(s): R56.9 - Unspecified convulsions Status: Acute Assessment and Plan: NO NEW SEIZURES SINGLE SINCE ADMISSION FOLLOW NEUROLOGY RECOMMENDATIONS NO SEIZURE ACTIVITY CONTINUE TO MONITOR Patient still on Keppra loading Supportive care (2) Polysubstance abuse: Code(s): F19.10 - Other psychoactive substance abuse, uncomplicated Status: Acute Assessment and Plan: CONTINUE TO MONITOR WILL FOLLOW-UP IN OUTPATIENT SETTING (3) Elevated CK: Code(s): R74.8 - Abnormal levels of other serum enzymes Status: Acute Assessment and Plan: IV FLUIDS CONTINUE TO MONITOR BMP and CBC DS: Summary Hospital Course Reason for hospitalization: Seizure Hospital Course: This is a 35-year-old male with history of polysubstance abuse presented to the emergency department earlier today via EMS from group home for evaluation after he was found unresponsive after a witnessed seizure. He is postictal at the time my evaluation and is unable to provide me with any history and as such all of the following is obtained via a review of his electronic medical records. I have not been able to get a hold family at this time. Not long prior to arrival he was found unresponsive in his group home cell with evidence of recent emesis. EMS was summoned and he was reportedly alert and answering questions at that time. EN route to the hospital he apparently had a witnessed seizure and he was given 5 milligrams of Valium. He received 2 milligrams of lorazepam in the emergency department as well, and his seizures have stopped. Unfortunately I have no other information and it is unclear whether not he has had seizures before. His urine drug screen was positive for cannabinoids and amphetamines Patient had a seizure prior to coming to the hospital there were renal and of emesis in his mouth he was loaded with Keppra and he remained postictal for most of the his hospital stay on the day of discharge patient is out wanted to go home he was seizure free throughout his hospital stay. A consult was obtained with Neurology and broadcast producer Critical Care as well. Patient was discharged home in stable medical condition Status at Discharge Cognitive/behavioral status at discharge: [id number] Overall status at discharge: patient is back to baseline Time Spent with Patient Time attestation: Total time spent providing and/or coordinating discharge services: Exam Narrative: Exam Narrative: General: WELL-APPEARING IN BED. Weight: 72.7 kilograms. BMI: 21.7. HEENT: Normocephalic, atraumatic. Pupils are about 3 millimeters and are sluggishly reactive. Sclerae anicteric. Conjunctiva mildly injected. Unable to assess extraocular motions as he is postictal. Tacky mucous membranes. Dry emesis on the corner of his mouth. Oropharynx not visualized. Neck: Supple. No JVD. Respiratory: Respirations are nonlabored. Scattered upper airway rhonchi. Protecting airway at this time. Cardiovascular: Regular rate and rhythm with S1-S2. Gastrointestinal: Abdomen is soft, nontender, and nondistended with positive bowel sounds. Skin: Warm and dry. No rash or lesions on limited exam. Extremities: No cyanosis, clubbing, or edema. Radial and pedal pulses intact. Neurological: Awake alert oriented x3. No facial asymmetry. 1+ patellar pulses. Psychiatric: Unable to assess as he is postictal. DS: Data Data Completed and Pending Completed studies during hospitalization: EXAMINATION: CT brain wo con DATE: 10/10/2020 18:
== END 2020-10-13 13:45 | disposition left against medical advice (07) | DRG 53 ==
LOC: ANHED 19:14 → ANHICU 21:36 → ANH2MED 10-11 18:20
PROVIDERS: Admitting Provider Internal Medicine; Emergency Provider General Practice; Visit Provider Internal Medicine
DX: R56.9 Unspecified convulsions (principal); F15.10 Other stimulant abuse, uncomplicated; F12.10 Cannabis abuse, uncomplicated; E86.0 Dehydration
CPT/HCPCS: 36415; 36600; 70450; 71045; 80048; 80053; 80307; 81001; 82140; 82375; 82550; 82805; 82948; 83050; 83605; 83735; 85025; 85610; 85730; 93005; 96361; 96365; 96366; 96374; 96375; 96376; 99285; A9270; G0378; G0379; J1953; J2060; J3411; J3480; J7030; J7120